=== PATIENT | female | born 1975 | race African-American/Black ===

== ENCOUNTER 2025-06-13 06:12 | Emergency (ER) | payer BC, OTHER ==
[~2025-06-13] VITALS: Ht 165.1 cm; Wt 81.0 kg
[2025-06-13 06:19] VITALS: O2SAT 98
[2025-06-13] MEDS ORDERED: IBUP-2028 PO (08:15)
[2025-06-13] MEDS ORDERED: T3 PO (08:15)
[2025-06-13] MEDS: IBUPROFEN 400MG TABLET PO ONE (08:20)
[2025-06-13 09:27] VITALS: BP 138/88; PULSE 84; RESP 17; TEMP 36.7; O2SAT 99
== END 2025-06-13 09:28 | disposition home or self-care (01) ==
LOC: ER 06:36
DX: S90.111A Contusion of right great toe without damage to nail, initial encounter (principal); W22.8XXA Striking against or struck by other objects, initial encounter; Y93.89 Activity, other specified; Y92.89 Other specified places as the place of occurrence of the external cause; Y99.8 Other external cause status
CPT/HCPCS: 73620; 99283; Z7610 ×2